=== PATIENT | female | born 1935 | race Caucasian/White ===

== ENCOUNTER → 2017-11-16 | Outpatient (CLI) | payer OTHER | LOC: RAD 14:37 | DX: R10.2 Pelvic and perineal pain (principal); M54.5 Low back pain; M25.551 Pain in right hip ==

== ENCOUNTER 2017-11-17 13:05 | Inpatient (IN) | payer OTHER ==
[~2017-11-17] VITALS: Ht 160 cm; Wt 53.5 kg
--- NOTE | ~2017-11-17 | H ---
[facility] [place] [address] HISTORY AND PHYSICAL Name: GINI SANCHEZ Room #: 226-P [facility] IN M.R.#: [id number] Admission: 11/17/17 Attend Phys: Harpal Hamilton MD, FAAF Discharge: Date of : 37 Report #: [id number] THIS REPORT FOR: //name// CC: Harpal Reddy MD DATE OF SERVICE: 11/17/2017 CHIEF COMPLAINT: Intractable right hip and groin pain. HISTORY OF PRESENT ILLNESS: The patient is an 82-year-old white female who has been having right hip and groin/pelvic pain over the past 10-12 days. This started with hyperextension of the hip while stretching. She saw a chiropractor, with good initial results, but a recurrence some days later did not respond to a second chiropractic manipulation. She has a difficult time walking, with exquisite pain. On the day prior to this admission, she had normal plain films of the right hip, pelvis and lumbosacral spine and on the day of admission, a normal limited abdominal sonogram and right hip sonogram were obtained. PAST MEDICAL HISTORY: Child , fractured coccyx, tonsillectomy, hernia repair and revision by Dr. Wakefield and fractured wrist. MEDICATIONS: Vitamins and supplements. ALLERGIES: No known drug allergies. SOCIAL HISTORY: and enjoys gardening. Lives at home. FAMILY HISTORY: Positive for longevity. REVIEW OF SYSTEMS: GENERAL: No fever, chills, nausea, vomiting or diarrhea. EYES: No visual changes. ENT: No problems with hearing, swallow, taste or smell. CARDIOVASCULAR: No chest pain or palpitations. RESPIRATORY: No difficulty breathing. GASTROINTESTINAL: No abdominal pain. GENITOURINARY: She does have right-sided groin pain, right hip pain and pain with walking. She has no dysuria, urgency or frequency of urination. MUSCULOSKELETAL: Intractable right hip and groin pain. NEUROLOGIC: No paresis, paralysis or paresthesias. PSYCHIATRIC: Frustrated, not depressed. DERMATOLOGIC: No disturbing lesions or rash. No bruising. Remainder of the systems review is negative. [address] [address] HISTORY AND PHYSICAL Name: GINI SANCHEZ Room #: 226-P [facility] IN [facility].#: [id number] Admission: 11/17/17 Attend Phys: Harpal Hamilton MD, FAAF Discharge: Date of : 37 Report #: [id number] PHYSICAL EXAMINATION: VITAL SIGNS: Temperature is 36.7, pulse 109, respirations 21, blood pressure 178/94 and pulse ox on room air 99%. GENERAL: She is in distress of right hip and pelvic pain. She is engaging in conversation, very pleasant. HEENT: Pupils equal, round and reactive to light and accommodation. Extraocular muscles intact. Pharynx unremarkable. NECK: Supple. COR: S1, S2. CHEST: Clear. ABDOMEN: Soft, nontender. EXTREMITIES: She has mild tenderness at the right groin crease and just distal to the right greater trochanter. She walks with an antalgic gait, with significant pain. LABORATORY DATA: Laboratory evaluation, white count 6.7, hemoglobin 13.8, hematocrit 40.6 and platelets 225,000. Serum chemistry: Sodium 140, potassium 3.6, chloride 106, CO2 of 28, anion gap 6, BUN 22, creatinine 0.7 and glucose 186. AST 16, bilirubin 0.7, calcium is 9.2, alkaline phosphatase 68 and ALT 68. Total protein 6.8. Albumin 3.7. Estimated glomerular filtration rate 81. CRP is 2.3. CT scan of the lumbar spine, noncontrast with reconstructions, shows scoliosis and mild degenerative change. Apparent large focal posterior right lateral disk protrusion at L2-L3. Correlation for level of pain may be useful to determine if this is the etiology. ASSESSMENT: Intractable pain, right hip and groin; L2-L3 right disk protrusion; small lytic area with sclerosis, right iliac crest, uncertain significance. PLAN: Admitted to the hospital. Orthopedic consult working. We will consult Dr. Moses for opinion on physical therapy and options for next steps and consider pain management consultation and consider consultation with Neurosurgery. The patient is reluctant to take any medicines or proceed with any invasive procedures. By: [id number] Harpal Hamilton MD, FAAFP, FACEP /nt
--- NOTE | ~2017-11-17 | HC ---
[facility] [place] [address] CONSULTATION Name: GINI SANCHEZ Room #: 226-P ADM IN M.R.#: [id number] Admission: 11/17/17 Attend Phys: [facility] Dis[facility]: Date of : 37 Report #: [id number] THIS REPORT FOR: //name// CC: JOHANNA Reddy MD REASON FOR CONSULTATION: Evaluation for inpatient rehabilitation, weakness and pain related to lumbar disk bulge. HISTORY OF PRESENT ILLNESS: This is an 82-year-old female admitted to [facility] on 11/17/2017 due to intractable right hip and right groin pain that had started approximately 12 days prior. She noticed that after hyperextension of the right hip while stretching, she initially saw chiropractor with good results. The recurrence happened a few days later. She especially had difficulty with walking due to the intractable pain. She was seen by her primary care provider and had a right hip, pelvis and lumbosacral spine x-rays that were all normal along with a normal abdominal sonogram and right hip sonogram that were all within normal limits. She was admitted for further evaluation. She was seen by orthopedic specialties. She underwent further CT scans, which showed large focal posterior right lateral disk protrusion at L2 and L3 along with scoliosis and mild degenerative joint changes. CT of the pelvis was negative. CT of the right lower extremity showed intact right hip. Orthopedic Services offered options of therapy, possible epidural injection or Medrol Dosepak for pain symptoms; however, at present she reports no pain at rest. Her pain after several minutes of activity raises to about an 8/10. She takes Tylenol very sparingly. PAST MEDICAL HISTORY: Childbirth, fractured coccyx, tonsillectomy, hernia repair with revision and a fractured wrist. ALLERGIES: No known drug allergies. MEDICATIONS: Vitamins and supplements at home, p.r.n. Tylenol at hospital. SOCIAL HISTORY: She is . She lives with her spouse at home. She enjoys gardening. She has zero steps to enter her house. She has 12 steps inside her house that she can avoid. She was independent prior level of functioning and utilized no assistive devices premorbidly. She is a full code status. Nonsmoker, nondrinker. REVIEW OF SYSTEMS: Her 12-point review of systems is negative except as listed in HPI. PHYSICAL EXAMINATION: [facility] [address] [place] [address] CONSULTATION Name: GINI SANCHEZ Room #: 226-P [facility] IN M.R.#: [id number] Admission: 11/17/17 Attend Phys: Johanna Hamilton MD, FAAF Discharge: Date of : 37 Report #: [id number] VITAL SIGNS: 181/106, temperature 36.7, pulse of 71, pulse ox 99% on room air. GENERAL: She is awake, alert, oriented x 4, very pleasant lady in no apparent distress. HEAD: EOMs are intact. No nystagmus. CHEST: Lungs are clear to auscultation bilaterally. No crackle, no wheeze. CARDIAC: Regular rate and rhythm. S1, S2 intact. No murmur. ABDOMEN: Bowel sounds positive, soft, nontender, nondistended. SKIN: Warm, dry, and intact. NEUROLOGICAL: Equal sensation bilaterally. Cranial nerves 2-12 grossly intact. EXTREMITIES: She has 4+/5 bilateral upper extremities strength, functional range of motion in her BUE, right lower extremity mild pain with extension. She has some mild muscle soreness with adductor activation. She is standby assist for sit to stand. She was able to ambulate 40 feet with standby assist with a front wheel walker. No calf swelling or edema. LABORATORY DATA: On November 17, WBC 6.7, hemoglobin 13.8, hematocrit 40.6, platelets 225. Sodium 140, potassium 3.6, BUN 22, creatinine 0.7. Folic acid 38.1, B12 452. ASSESSMENT: 1. Symptomatic right L2-L3 lumbar disk bulge. 2. Right adductor strain. 3. Mild degenerative joint disease. 4. Hypertension with no prior history. PLAN: We will continue to follow the patient and make further recommendations for her therapy needs. At this point, the patient wishes to discharge home and do outpatient physical therapy. She has been issued a roller walker and PT has given recommendations for mobility. Thank you very much for this consultation. We will continue to follow very closely. <ELECTRONICALLY SIGNED> By: JENNI Dalton 11/20/17 1352 1028 1344 JENNI Dalton /nt
[2017-11-17 17:00] VITALS: BP 171/96
[2017-11-17 20:06] VITALS: BP 187/103
[2017-11-17 20:21] LABS: ABSOLUTE NEUTROPHILS 3.3 thou/uL (1.4-8.2); BASOPHILS 0.4 % (0.0-2.0); EOSINOPHILS 0.5 % (0.0-3.0); HEMATOCRIT 40.6 % (37.0-47.0); HEMOGLOBIN 13.8 gm/dL (12.0-15.0); LYMPHOCYTES 44.2 % (24.0-44.0); MCH 31.1 pg (26.0-34.0); MCHC 33.9 g/dL (28.0-37.0); MCV 91.7 fL (80.0-100.0); PLATELET COUNT 225 thou/uL (150-400); POLYS 48.9 % (36.0-66.0); RBC 4.43 mil/uL (4.20-5.00); RDW 13.6 % (10.5-14.5); WBC 6.7 thou/uL (4.0-11.0)
[2017-11-17 20:35] LABS: ALBUMIN 3.7 g/dL (3.4-5.0); CALCIUM 9.2 mg/dL (8.5-10.1); CREATININE 0.7 mg/dL (0.6-1.0); POTASSIUM 3.6 mmol/L (3.5-5.1); TOTAL BILIRUBIN 0.7 mg/dL (<0.1-1.0); TOTAL PROTEIN 6.8 g/dL (6.4-8.2)
[2017-11-18 05:17] VITALS: BP 171/84
[2017-11-18 08:45] VITALS: BP 179/91
[2017-11-18 14:09] LABS: CA 125 19.8 U/mL (0.0-38.1)
[2017-11-18 17:26] VITALS: BP 165/87
[2017-11-18 20:00] VITALS: BP 188/99
[2017-11-19 07:15] VITALS: BP 178/94
[2017-11-19 20:00] VITALS: BP 173/99
[2017-11-20 08:10] VITALS: BP 181/106
[2017-11-20 09:22] LABS: FOLIC ACID 38.1 ng/mL (8.6-58.9)
[2017-11-20 10:36] VITALS: BP 181/106
[2017-11-20 12:07] LABS: CEA 2.1 ng/mL (0.0-4.7)
[2017-11-23 00:08] LABS: 25-HYDROXY TOTAL 32.8 ng/mL (30.0-100.0)
== END 2017-11-20 19:21 | disposition home or self-care (01) | DRG 552 ==
LOC: ULTRA 13:05 → SICU 14:29 → 4N 14:29 → SICU 11-18 17:38
PROVIDERS: Family Medicine
DX: M51.26 Other intervertebral disc displacement, lumbar region (principal); I10 Essential (primary) hypertension; M25.551 Pain in right hip; M34.9 Systemic sclerosis, unspecified; R10.31 Right lower quadrant pain
CPT/HCPCS: 10790; 15002

== ENCOUNTER 2021-02-23 10:22 | Emergency (ER) | payer OTHER ==
[~2021-02-23] VITALS: Ht 160 cm; Wt 54.4 kg
[2021-02-23 11:39] VITALS: BP 123/78
[2021-02-23 12:22] LABS: ABSOLUTE NEUTROPHILS 2.9 thou/uL (1.4-8.2); BASOPHILS 0.3 % (0.0-2.0); HEMOGLOBIN 12.8 gm/dL (12.0-15.0); LYMPHOCYTES 26.9 % (24.0-44.0); MCH 28.7 pg (26.0-34.0); MCHC 33.7 g/dL (28.0-37.0); MCV 85.3 fL (80.0-100.0); MONOCYTES 5.2 % (1.0-8.0); PLATELET COUNT 156 thou/uL (150-400); POLYS 67.6 % (36.0-66.0); RBC 4.45 mil/uL (4.20-5.00); RDW 13.8 % (10.5-14.5); WBC 4.2 thou/uL (4.0-11.0)
[2021-02-23 12:26] LABS: CALCIUM 8.5 mg/dL (8.5-10.1); CREATININE 0.8 mg/dL (0.6-1.0)
[2021-02-23 12:32] LABS: ALBUMIN 3.5 g/dL (3.4-5.0); TOTAL BILIRUBIN 0.5 mg/dL (0.2-1.0); TOTAL PROTEIN 7.2 g/dL (6.4-8.2)
--- NOTE | 2021-02-23 14:41 | EKG ---
[address] [address] ELECTROCARDIOGRAM REPORT Name: GINI SANCHEZ [facility]: [facility] [id number] Admission: 02/23/21 Attend Phys: Discharge: Date of : 37 Report #: [id number] [facility] ED Test Date: 2021-02-23 Test Time: 11:52:05 Pat Name: GINI SANCHEZ Department: Room: Gender: F [employer] Developer: TRACI : 1935 Requested By: Andrew Mcginnis Order Number: [id number] MD: Shay Leiva Measurements Intervals [place] Rate: 97 P: 3 UT: 181 QRS: -33 QRSD: 101 T: 2 QT: 366 QTc: 465 Interpretive Statements Sinus rhythm Left axis deviation Borderline T wave abnormalities No previous ECG available for comparison Electronically Signed On 02-23-2021 14:41:40 CDT by Shay Leiva [email or web address] <ELECTRONICALLY SIGNED> By: Shay Leiva MD, [facility] 02/23/21 1441 1152 1152 Shay Leiva MD, FACC /EPI
== END 2021-02-23 13:15 | disposition home or self-care (01) ==
LOC: ER 10:22
PROVIDERS: Student in an Organized Health Care Education/Training Program
DX: U07.1 COVID-19 (principal); R53.1 Weakness; Z90.89 Acquired absence of other organs; Z98.890 Other specified postprocedural states

== ENCOUNTER 2021-02-26 10:03 | Inpatient (IN) | payer OTHER ==
[~2021-02-26] VITALS: Ht 160 cm; Wt 54.0 kg
--- NOTE | ~2021-02-26 | H ---
[facility] [address] [address] HISTORY AND PHYSICAL Name: GINI SANCHEZ Room #: 364-P ADM IN M.R.#: [id number] Admission: 02/26/21 Attend Phys: Harpal Hamilton MD, FAAF Discharge: Date of : 37 Report #: [id number] THIS REPORT FOR: cc: Harpal Hamilton MD FAAFP FACEP Harpal Hamilton MD FAAFP FACEP Harpal Hamilton MD FAAFP FACEP ~ DATE OF SERVICE: 02/26/2021 CHIEF COMPLAINT: COVID pneumonia. HISTORY OF PRESENT ILLNESS: The patient is an 85-year-old white female with COVID pneumonia, tested positive several days prior in the same Emergency Department, was placed on Zithromax and Medrol Dosepak, was unaware that she had infiltrates on x-ray when released from the emergency room originally. It was not improving at home and was redirected to the emergency room at which time she was found to have ____ infiltrate, but admitted to the hospital with some element of hypoxia and failure to thrive. PAST MEDICAL HISTORY: Tonsillectomy, hernia repair, back strain. MEDICATIONS: None. ALLERGIES: No known drug allergies. SOCIAL HISTORY: , nonsmoker, nondrinker, lives at home with her . Family in the [place] area. FAMILY HISTORY: Noncontributory. REVIEW OF SYSTEMS: GENERAL: Generally, she has had some fever and chills. No nausea, vomiting, diarrhea. EYES: No visual changes. ENT: : No problems with hearing, swallow, taste or smell. CARDIOVASCULAR: No chest pain or palpitation. RESPIRATORY: She does have some shortness of breath, cough, hypoxia, and left lower lobe infiltrate. GASTROINTESTINAL: No abdominal pain. GENITOURINARY: No problems urinating. MUSCULOSKELETAL: Some arthritis. NEUROLOGIC: No paresis, paralysis, paresthesias. PSYCHIATRIC: Frustrated, not depressed. SKIN: No disturbing lesions or rash. Remainder of system review is negative. OBJECTIVE: [facility] [address] [place] [address] HISTORY AND PHYSICAL Name: GINI SANCHEZ Room #: 364-[facility] IN M.R.#: [id number] Admission: 02/26/21 Attend Phys: Harpal Hamilton MD, FAAF Discharge: Date of : 37 Report #: [id number] VITAL SIGNS: Temperature 36.8, pulse 94, respirations 14, blood pressure 115/72, 90-93% oxygenated on room air. She weighs 115 pounds. GENERAL: She is in no acute distress. Appears fatigued. HEENT: Pupils equal, round, reactive to light and accommodation. Extraocular muscles intact. Pharynx unremarkable. NECK: Supple. COR: S1, S2. CHEST: Clear except for a few coarse breath sounds and diminished air movement, left base. ABDOMEN: Soft, nontender. EXTREMITIES: No cyanosis, clubbing or edema. NEUROLOGIC: She is intact without focal deficit. LABORATORY EVALUATION: CBC: White count is 4.7, hemoglobin 12.2, hematocrit 36.5, platelets 244,000. Serum chemistry: Sodium 131, potassium 3.6, chloride 97, CO2 of 27, anion gap 7, BUN 14, creatinine 0.7, estimated glomerular filtration rate is 80, glucose 106, calcium is 8.3, total bilirubin 0.6, AST 39, ALT 27, alkaline phosphatase 65. Troponin less than 0.06. Total protein 6.7, albumin 2.9. DIAGNOSTIC DATA: Chest x-ray shows improving left basilar infiltrate. ASSESSMENT: COVID pneumonia. PLAN: ____ oxygen ____ infectious disease specialist. By: [id number] Harpal Hamilton MD, FAAFP, FACEP /nt
[2021-02-26 10:04] VITALS: BP 115/72
[2021-02-26 10:54] LABS: HEMOGLOBIN 12.2 gm/dL (12.0-15.0)
[2021-02-26 10:56] LABS: ABSOLUTE NEUTROPHILS 3.4 thou/uL (1.4-8.2); BASOPHILS 0.2 % (0.0-2.0); HEMATOCRIT 36.5 % (37.0-47.0); LYMPHOCYTES 22.8 % (24.0-44.0); MCH 28.5 pg (26.0-34.0); MCHC 33.5 g/dL (28.0-37.0); MCV 85.2 fL (80.0-100.0); MONOCYTES 4.3 % (1.0-8.0); POLYS 72.7 % (36.0-66.0); RBC 4.28 mil/uL (4.20-5.00); WBC 4.7 thou/uL (4.0-11.0)
[2021-02-26 10:57] LABS: PLATELET COUNT 244 thou/uL (150-400)
[2021-02-26 10:59] LABS: ANION GAP 7 mmol/L (7-16); BUN 14 mg/dL (7-18); CALCIUM 8.3 mg/dL (8.5-10.1); CHLORIDE 97 mmol/L (98-107); CO2 27 mmol/L (21-32); CREATININE 0.7 mg/dL (0.6-1.0); GLUCOSE 106 mg/dL (74-106); POTASSIUM 3.6 mmol/L (3.5-5.1); SODIUM 131 mmol/L (136-145)
[2021-02-26 11:10] LABS: ALBUMIN 2.9 g/dL (3.4-5.0); SGOT 39 U/L (15-37); SGPT 27 U/L (14-59); TOTAL BILIRUBIN 0.6 mg/dL (0.2-1.0); TOTAL PROTEIN 6.7 g/dL (6.4-8.2); TROPONIN-I <0.06 ng/mL (<0.06)
--- NOTE | 2021-02-26 13:58 | NUR ---
ANETTE (DAUGHTER) [phone] BRYNN (SON) [phone] TANIYA (SON) [phone]
[2021-02-26 14:01] VITALS: BP 123/66
--- NOTE | 2021-02-26 17:05 | NUR ---
PT ADMITTED FROM ER FOR COVID AND WEAKNESS AT 1500PM, PT IS A&OX4, PT HAS SOME COUGHING , BUT PT DOES NOT HAVE SOB, PT IS ON ROOM AIR, PT'S VS ARE STABLE, PT DENIES PAIN AT THIS TIME, RN HAS TEACHING PT TO CALL FOR HELP IN ORDER TO PREVENT FALL , RN HAS NOTIFIED DR RODRÍGUEZ AND ID , PT IS IN ROOM 364.
[2021-02-26 19:25] VITALS: BP 107/68
--- NOTE | 2021-02-27 00:13 | NUR ---
PT ASLEEP IN BED, EASILY AROUSED DURING ASSESSMENT. IVF STARTED. O2 PER NC. LUNGS WITH WHEEZES. WEAKNESS WITH WATER AND TRANSFERS TO BSC. BED ALARM ON. PT REQUESTED MEDS CRUSHED STATED SHE WILL HAVE EMESIS IF SWALLOWS PILLS. PTS SON CALLED FOR UPDATE.
[2021-02-27 05:45] VITALS: BP 110/66
[2021-02-27 06:53] LABS: HEMATOCRIT 33.6 % (37.0-47.0); HEMOGLOBIN 11.4 gm/dL (12.0-15.0); MCH 28.8 pg (26.0-34.0); MCV 84.7 fL (80.0-100.0); PLATELET COUNT 233 thou/uL (150-400); RBC 3.97 mil/uL (4.20-5.00); RDW 14.3 % (10.5-14.5); WBC 2.4 thou/uL (4.0-11.0)
[2021-02-27 07:12] LABS: INR 1.02; PROTIME 11.1 Seconds (10.5-12.1)
[2021-02-27 07:30] LABS: ALBUMIN 2.5 g/dL (3.4-5.0); CALCIUM 7.9 mg/dL (8.5-10.1); CREATININE 0.6 mg/dL (0.6-1.0); POTASSIUM 3.9 mmol/L (3.5-5.1); TOTAL BILIRUBIN 0.5 mg/dL (0.2-1.0); TOTAL PROTEIN 6.2 g/dL (6.4-8.2)
[2021-02-27 08:04] VITALS: BP 117/61
[2021-02-27 11:55] VITALS: BP 102/62
[2021-02-27 13:51] LABS: ABSOLUTE NEUTROPHILS 1.7 thou/uL (1.4-8.2); ATYPICAL LYMPHS 5 %
[2021-02-27 13:52] LABS: ANISOCYTOSIS SLIGHT
[2021-02-27 15:13] VITALS: BP 134/83
--- NOTE | 2021-02-27 17:47 | HC ---
[facility] [place] [address] CONSULTATION Name: GINI SANCHEZ Room #: 364-P ADM IN M.R.#: [id number] Admission: 02/26/21 Attend Phys: Harpal Hamilton MD, FAAF Discharge: Date of : 37 Report #: [id number] THIS REPORT FOR: cc: Harpal Hamilton MD [facility] FACE Harpal Hamilton MD FAA FACE Aleks Ocampo MD ~ DATE OF SERVICE: 02/26/2021 REASON FOR CONSULTATION: Evaluate COVID-19 pneumonia. HISTORY OF PRESENT ILLNESS: The patient is an 85-year-old otherwise healthy female, who developed COVID-19 over a week ago, was seen in the Emergency Room with left lower lobe infiltrate, given azithromycin, but has not improved. She has intermittent nonproductive cough. She has anorexia and profound fatigue. She has lost over 10 pounds over the last week. She is declining at home and therefore brought into the Emergency Room for further evaluation. She has had no fever, chills or sweats. She has had no nausea, vomiting or diarrhea. No rash or decubiti. O2 saturation on admission was 92%. Thus far, she has not required oxygen. REVIEW OF SYSTEMS: 14-point review of system was negative other than what has been described above. ALLERGIES: None known. MEDICATIONS: None prior to admission other than the azithromycin and multivitamins. PAST SURGICAL HISTORY: Tonsillectomy, herniorrhaphy. FAMILY HISTORY: Negative for tuberculosis. SOCIAL HISTORY: Nonsmoker, no significant alcohol intake, immigrant from [place] with no tuberculosis exposure. PHYSICAL EXAMINATION: GENERAL: She was afebrile, hemodynamically stable. She was alert, cooperative and pleasant. No acute distress, sitting up in bed. SKIN: Without rash or decubitus. She was thin. No palpable adenopathy. Eyes without scleral icterus. Mouth without mucositis. NECK: Supple. LUNGS: Few crackles in the bases heard in the left. HEART: Regular with a 1/6 systolic murmur left sternal border. ABDOMEN: Soft and nontender with no hepatosplenomegaly or mass. No peripheral edema, cyanosis or clubbing. GENITAL AND RECTAL: Examination not performed. [facility] [address] [place] [address] CONSULTATION Name: GINI SANCHEZ Room #: [facility] IN .R.#: [id number] Admission: 02/26/21 Attend Phys: Harpal Hamilton MD, FAAF Discharge: Date of : 37 Report #: [id number] BACK: Nontender. NEUROLOGIC: Mental status was within normal limits and mood without anxiety or depression. Cranial nerves intact. Strength in the upper and lower extremities was symmetric and within normal limits. LABORATORY DATA: Reviewed. CHEST X-RAY: Reviewed. IMPRESSION: An 85-year-old with COVID-19 pneumonia and failure to thrive at home. She is hypoxic and will require oxygen supplementation to maintain her sats above 92%. We will give corticosteroids and remdesivir. No current indication for Actemra, at this point, we will need further data. We will check laboratory studies today. We will follow her closely on the COVID isolation unit monitoring her cardiorespiratory status. <ELECTRONICALLY SIGNED> By: Aleks Ocampo MD 02/27/21 1747 1718 0515 Aleks Ocampo MD /nt
--- NOTE | 2021-02-27 19:25 | NUR ---
RN ASSUMED PT'S CARE AT 0700-1900PM, PT IS A&OX4, PT IS ON O2 2L/MIN/NC, PT'S VS AND O2 SAT ARE STABLE, PT HAS TAKING TO TREAT COVID MENICATIONS, PT'S CAUGHING AND WEAKNESS HAVE IMPROVED, PT GETS UP TO CHAIR AND TO BATH ROOM WITH ASSIST, PT DENIES PAIN AND SOB AT DAY SHIFT.
[2021-02-27 19:33] VITALS: BP 121/76
[2021-02-28 03:05] LABS: HIV ANTIBODY Non Reactive (Non Reactive)
[2021-02-28 05:24] VITALS: BP 134/89
[2021-02-28 06:27] LABS: BASOPHILS 0.1 % (0.0-2.0); HEMATOCRIT 34.8 % (37.0-47.0); HEMOGLOBIN 11.7 gm/dL (12.0-15.0); LYMPHOCYTES 18.9 % (24.0-44.0); MCH 28.9 pg (26.0-34.0); MCHC 33.5 g/dL (28.0-37.0); MCV 86.4 fL (80.0-100.0); MONOCYTES 7.4 % (1.0-8.0); PLATELET COUNT 252 thou/uL (150-400); POLYS 73.6 % (36.0-66.0); RBC 4.03 mil/uL (4.20-5.00); RDW 14.3 % (10.5-14.5); WBC 4.1 thou/uL (4.0-11.0)
--- NOTE | 2021-02-28 06:29 | NUR ---
Patient making some progress towards outcome goals. Oxygenation optimal with 2L/NC. High fall risk, gait steady up to BSC. Patient declined alarm on, calls out appropriately for needs. Vital signs and rhythm stable.
[2021-02-28 07:00] LABS: ALBUMIN 2.5 g/dL (3.4-5.0); CALCIUM 8.1 mg/dL (8.5-10.1); CREATININE 0.5 mg/dL (0.6-1.0); TOTAL BILIRUBIN 0.4 mg/dL (0.2-1.0); TOTAL PROTEIN 6.1 g/dL (6.4-8.2)
[2021-02-28 08:27] VITALS: BP 133/81
[2021-02-28 11:00] VITALS: BP 124/70
[2021-02-28 15:39] VITALS: BP 140/78
--- NOTE | 2021-02-28 19:24 | NUR ---
RN ASSUMED PT'S CARE AT [id number], PT IS A&OX4, PT IS ONO2 2L/MIN/NC, PT'S VS ARE STABLE, PT 'S VS ARE STABLE, PT IS CONTINUING TO HAVE TREATING COVID MEDICATIONS, PT GETS UP TO BATH ROOM WITHOUT ASSIST, PT'S WEAKNESS HAS IMPROVED.
[2021-02-28 20:13] VITALS: BP 142/92
[2021-03-01 02:30] VITALS: BP 139/87
--- NOTE | 2021-03-01 05:14 | NUR ---
Patient making progress towards outcome goals. Vital signs and rhythm stable. No cough, Oxygenation optimal with 2L/NC. High fall risks, precautions in place. Calls out appropriately for needs. Received 2/4 Remdesivir dose.
[2021-03-01 05:22] LABS: ABSOLUTE NEUTROPHILS 3.4 thou/uL (1.4-8.2); BASOPHILS 0.1 % (0.0-2.0); HEMATOCRIT 33.3 % (37.0-47.0); HEMOGLOBIN 11.4 gm/dL (12.0-15.0); MCH 29.1 pg (26.0-34.0); MCHC 34.3 g/dL (28.0-37.0); MCV 84.7 fL (80.0-100.0); MONOCYTES 8.5 % (1.0-8.0); PLATELET COUNT 302 thou/uL (150-400); POLYS 71.4 % (36.0-66.0); RBC 3.93 mil/uL (4.20-5.00); WBC 4.8 thou/uL (4.0-11.0)
[2021-03-01 05:34] LABS: ALBUMIN 2.5 g/dL (3.4-5.0); CALCIUM 7.6 mg/dL (8.5-10.1); CREATININE 0.5 mg/dL (0.6-1.0); POTASSIUM 4.2 mmol/L (3.5-5.1); TOTAL BILIRUBIN 0.4 mg/dL (0.2-1.0)
[2021-03-01 07:29] VITALS: BP 144/93
[2021-03-01 11:21] VITALS: BP 108/74
--- NOTE | 2021-03-01 14:56 | NUR ---
INITIAL ASSESSMENT: MC reviewed chart and spoke with nursing. Pt was admitted from home due to COVID. Pt placed in Enhanced Isolation. Pt is afebrile and on 2L of O2. Pt is completing course of Remdesivir. MC placed call to pt's room. No answer. MC spoke with pt's son, Reymundo, who lives in [place]. Introduced role of SW. Per Reymundo, pt is alert/orientated x 4. Pt and spouse live at home. Prior to admission, pt was independent with ADLs. No hx of HH services or post-acute placement. Pt's PCP is Dr. Frederick Hamilton. MC discussed discharge plan. Plan is for pt and her spouse to return home. Pt's son is agreeable with HH referral if pt and spouse are agreeable. Pt's children plan to be at home with pt and spouse when they are discharged. Pt is hoping to discharge today. Awaiting input from ID and attending physician. MC is following to assist as needed with discharge planning.
[2021-03-01 15:31] VITALS: BP 119/75
--- NOTE | 2021-03-01 17:24 | NUR ---
RN ASSUMED PT'S CARE AT 0700AM, PT IS A&OX4, PT STILL IS ON O2 2L/MIN/NC, PT'S VS ARE STABLE, PT'S WEAKNESS HAS IMPROVED, PT CAN GET UP TO BATH ROOM WITHOUT ASSIST, PT WANTS TO GO HOME, RN HAS REPORTED TO ID AND MARCOS, BOTH DR WILL SEE PT SOON.
[2021-03-01 19:11] VITALS: BP 128/77
--- NOTE | 2021-03-02 01:13 | NUR ---
PT RESTING IN BED, ON COMPUTER. O2 PER NC. LUNGS WITH WHEEZES. PT STATED SHE HOPES TO GO HOME TOMORROW AFTER REMDESIVIR DOSE. STEADY GAIT. USING BSC.
[2021-03-02 03:48] VITALS: BP 143/87
[2021-03-02 07:49] VITALS: BP 153/100
[2021-03-02 11:03] VITALS: BP 101/54; BP 154/101
--- NOTE | 2021-03-02 14:41 | NUR ---
SW reviewed chart and spoke with nursing. Pt remains in Enhanced Isolation due to COVID. Pt is afebrile and on 2L of O2. Pt is completing course of Remdesivir. SW placed call to pt's room to discuss discharge. No answer. SW contacted attending physician to discuss discharge timefram. Awaiting response at this time. Plan is for pt to discharge home when medically stable. MC is following to assist as needed with discharge planning.
--- NOTE | 2021-03-02 15:51 | NUR ---
RN ASSUMED PT'S CARE AT 0700AM, PT IS A&OX4, PT IS ON O2 2L/MIN/NC, PT'S VS AND O2SAT ARE STABLE, PT IS CONTINUING TO TREAT COVID MEDICATIONS, PT'S SOB AND WEAKNESS HAVE IMPROVED, PT DENIES PAIN AT THIS TIME.
[2021-03-02 16:03] VITALS: BP 156/95
[2021-03-02 20:54] VITALS: BP 153/90
--- NOTE | 2021-03-03 06:29 | NUR ---
VSS OVERNIGHT. PT UP TO BSC AD JUDIT. SHE STATES SHE IS READY TO GO HOME. POC WITH LAST DOSE OF REMDESIVIR GIVEN OVERNIGHT. CALL LIGHT WITHIN REACH.
[2021-03-03 07:53] VITALS: BP 125/81
[2021-03-03 11:38] VITALS: BP 120/82
[2021-03-03 12:56] VITALS: BP 120/82
[2021-03-03] MEDS ORDERED: DEXAMETHASONE 44 M1 PO (13:07)
[2021-03-03] MEDS ORDERED: ZINC SULFATE50 MG PO (13:07)
[2021-03-03] MEDS ORDERED: VITAMIN D325 MC1 PO (13:08)
[2021-03-03 13:17] VITALS: BP 120/82
--- NOTE | 2021-03-03 13:17 | NUR ---
DISCHARGE NOTE: SW reviewed chart and spoke with nursing and attending physician. Pt remains in Enhanced Isolation due to COVID. Pt is medically stable for discharge home today. SW spoke with pt via phone. Introduced role of SW. Pt is agreeable with HH for both herself and her spouse (currently inpt). HH providers discussed. No preference voiced. SW confirmed pt's home address and phone number. Pt states that their dtr is currently in town from [place] and will be staying until Monday. Their son from [place] will be arriving in town on Monday and staying for a week. Pt's dtr will provide transportation home this afternoon. SW faxed HH referral and discharge ppwk to [facility]. Notified [facility] liaison. Confirmed info was recieved. Start of care planned for Monday, 03/06. Contact info for [facility] placed in pt's discharge summary. Nursing updated. No additional SW needs identified at this time, but is available to assist should needs arise.
--- NOTE | 2021-03-03 13:56 | NUR ---
D/C ORDERS IN, DISCHARGE INSTRUCTION AND NEW MED INFO GIVEN TO PT. IV AND TELE D/C. SCRIPTS FOR NEW MEDS GIVEN TO PT. ALL BELONGINGS PACKED AND GIVEN TO PT. DENIES ANY NEEDS AT MOMENT. WILL CONTINUE TO MONITOR
[2021-03-04 08:54] LABS: T-SPOT.TB Negative
== END 2021-03-03 14:00 | disposition home health service (06) | DRG 177 ==
LOC: ER 10:03 → 3W 13:55 → EROBS 13:55 → 3W 14:26
PROVIDERS: Emergency Medicine; Internal Medicine; Specialist; ADMIT Family Medicine; ATTEND Family Medicine
PROC: XW033E5 Introduction of Remdesivir Anti-infective into Peripheral Vein, Percutaneous Approach, New Technology Group 5 (ICD-10-PCS; principal; 2021-02-26)
DX: U07.1 COVID-19 (principal); J12.82 Pneumonia due to coronavirus disease 2019; E44.0 Moderate protein-calorie malnutrition; E87.1 Hypo-osmolality and hyponatremia; D64.9 Anemia, unspecified; R62.7 Adult failure to thrive; D70.9 Neutropenia, unspecified; R53.81 Other malaise; Z68.21 Body mass index [BMI] 21.0-21.9, adult; Z79.899 Other long term (current) drug therapy
CPT/HCPCS: 10879